=== PATIENT | male | born 1990 | race African-American/Black ===

== ENCOUNTER 2017-07-13 06:23 | Emergency (ER) | payer SELFPAY ==
[~2017-07-13] VITALS: Ht 167.6 cm; Wt 122.0 kg
[~2017-07-13 06:23] MED LIST: FLEXERIL10 MG PO; PHENERGAN-CODE120 ML PO; PROVENTIL HFA6.7 GM IH; TORADOL10 MG PO; ULTRAM50 MG PO
[2017-07-13] MEDS ORDERED: PERCOCET 5/31 TABLET PO (07:09)
[2017-07-13] MEDS ORDERED: AUGMENTIN875 MG PO (07:09)
[2017-07-13 07:22] VITALS: BP 160/75
== END 2017-07-13 07:04 | disposition home or self-care (01) ==
LOC: EME 06:23
DX: K08.89 Other specified disorders of teeth and supporting structures (principal); K03.81 Cracked tooth
CPT/HCPCS: 99281; 99284

== ENCOUNTER 2017-07-28 23:58 | Emergency (ER) | payer OTHER ==
[~2017-07-28] VITALS: Ht 167.6 cm; Wt 122.1 kg
[~2017-07-28 23:58] MED LIST changes: +AUGMENTIN875 MG PO; +PERCOCET 5/31 TABLET PO
[2017-07-29 00:41] LABS: HEMATOCRIT 44.9 % (38.0-50.0); HEMOGLOBIN 15.5 G/DL (12.5-16.6); MCHC 34.5 G/DL (30.0-36.0); MCV 92.8 FL (86-99); PLATELET COUNT 237 K/uL (156-360); RBC DIS.WIDTH-CV 11.9 % (11.8-14.6); RBC DIS.WIDTH-SD 40.4 % (39-53); RED BLOOD COUNT 4.84 M/uL (4.00-5.50); WHITE BLOOD COUNT 6.7 K/uL (4.1-10.2)
[2017-07-29 00:51] LABS: CHLORIDE 104 mEq/L (99-109); POTASSIUM 3.5 mEq/L (3.7-5.4); SODIUM 141 mEq/L (136-147)
[2017-07-29 00:53] LABS: GLUCOSE 116 mg/dL (70-99)
[2017-07-29 00:57] LABS: GFR ESTIMATE (CALCULATED) > 59 mL/min/ (58.99-99999)
[2017-07-29 00:58] LABS: UREA NITROGEN (BUN) 15 mg/dL (9-23)
[2017-07-29 01:27] LABS: SERUM ETHYL ALCOHOL 64 mg/dL
[2017-07-29 01:28] LABS: AMPHETAMINE NEGATIVE (500 ng/mL); BARBITURATES NEGATIVE (200 ng/mL); BENZODIAZEPINES NEGATIVE (150 ng/mL); BUPRENORPHINE NEGATIVE (10 ng/mL); COCAINE NEGATIVE (150 ng/mL); METHADONE NEGATIVE (200 ng/mL); METHAMPHETAMINE NEGATIVE (500 ng/mL); OPIATES (MORPHINE) NEGATIVE (100 ng/mL); OXYCODONE NEGATIVE (100 ng/mL); PHENCYCLIDINE NEGATIVE (25 ng/mL); PROPOXYPHENE NEGATIVE (300 ng/mL); THC CANNABINOIDS PRESUMPTIVE POSITIVE (50 ng/mL); TRICYCLIC ANTIDEPRESSANTS NEGATIVE (300 ng/mL)
[2017-07-29 02:35] VITALS: BP 138/86
== END 2017-07-29 02:37 | disposition home or self-care (01) ==
LOC: EME 23:58
PROVIDERS: Emergency Medicine
DX: T40.7X1A Poisoning by cannabis (derivatives), accidental (unintentional), initial encounter (principal); R42 Dizziness and giddiness; R20.0 Anesthesia of skin; F10.129 Alcohol abuse with intoxication, unspecified; Y90.3 Blood alcohol level of 60-79 mg/100 ml
CPT/HCPCS: 80048; 84999; 85027; 93005; 99281; 99283; G0480